=== PATIENT | female | born 1970 | race Caucasian/White ===

== ENCOUNTER 2018-05-26 06:25 | Emergency (ER) | payer MEDICARE ==
[~2018-05-26] VITALS: Ht 165.1 cm; Wt 102.1 kg
[2018-05-26] MEDS ORDERED: IV NORMAL SALINE 1,000ML 1,000 ML IV ONE (07:00)
[2018-05-26] MEDS ORDERED: ONDANSETRON PF 4 MG/2 ML VIAL. IV ONE (07:00)
[2018-05-26] MEDS ORDERED: ONDA4TAB12 PO (07:05)
--- NOTE | 2018-05-26 07:05 | PHYS DOC ---
Past History Past Medical History: Diabetes, Hypertension Alcohol Use: None Drug Use: None Adult General Chief Complaint Chief Complaint: NAUSEA/VOMITING/DIARRHEA HPI HPI 48-year-old female presents with vomiting and diarrhea since early this morning. The patient woke up about 4 hours ago with nausea. Soon after she began to have several episodes of vomiting and diarrhea. Patient now has diffuse abdominal cramping, mild in character. She denies fever or chills. She has been unable to keep down any fluids at home and is concerned she will get dehydrated. The vomiting and the stool do not contain blood. Review of Systems Review of Systems Constitutional: Denies fever or chills [] Eyes: Denies change in visual acuity, redness, or eye pain [] HENT: Denies nasal congestion or sore throat [] Respiratory: Denies cough or shortness of breath [] Cardiovascular: No additional information not addressed in HPI [] GI: Diffuse abdominal pain, nausea, vomiting, diarrhea [] : Denies dysuria or hematuria [] Musculoskeletal: Denies back pain or joint pain [] Integument: Denies rash or skin lesions [] Neurologic: Denies headache, focal weakness or sensory changes [] Endocrine: Denies polyuria or polydipsia [] All other systems were reviewed and found to be within normal limits, except as documented in this note. Current Medications Current Medications Current Medications Medications (Trade) Dose Ordered Sig/Bar Start Time Stop Time Status Last Admin Dose Admin Ondansetron HCl (Zofran) 4 mg 1X ONCE 05/26/18 07:00 05/26/18 07:01 Sodium Chloride 1,000 ml @ 1,000 mls/hr 1X ONCE 05/26/18 07:00 05/26/18 07:59 Allergies Allergies Allergies Coded Allergies Type Severity Reaction Last Updated Verified No Known Drug Allergies 05/26/18 No Physical Exam Physical Exam Constitutional: Well developed, well nourished, mild acute distress, non-toxic appearance. [] HENT: Normocephalic, atraumatic, bilateral external ears normal, oropharynx moist, no oral exudates, nose normal. [] Eyes: PERRLA, EOMI, conjunctiva normal, no discharge. [] Neck: Normal range of motion, no tenderness, supple, no stridor. [] Cardiovascular:Heart rate regular rhythm, tachycardia, rate 118, no murmur [] Lungs & Thorax: Bilateral breath sounds clear to auscultation [] Abdomen: Bowel sounds normal, soft, no tenderness, no masses, no pulsatile masses. [] Skin: Warm, dry, no erythema, no rash. [] Back: No tenderness, no CVA tenderness. [] Extremities: No tenderness, no cyanosis, no clubbing, ROM intact, no edema. [] Neurologic: Alert and oriented X 3, normal motor function, normal sensory function, no focal deficits noted. [] Psychologic: Affect normal, judgement normal, mood normal. [] Current Patient Data Vital Signs Vital Signs Date Time Temp Pulse Resp B/P (MAP) Pulse Ox O2 Delivery O2 Flow Rate FiO2 05/26/18 06:28 97.5 79 18 95 Room Air EKG EKG [] Radiology/Procedures Radiology/Procedures [] Impressions: CT scan of the abdomen and pelvis with contrast 05/26/2018 CLINICAL HISTORY: Abdominal pain with nausea and vomiting. TECHNIQUE: After the intravenous administration of 75 cc of Omnipaque 300, contiguous, 5 mm axial sections were obtained through the abdomen and pelvis. One or more of the following individualized dose reduction techniques were utilized for this study: 1. Automated exposure control. 2. Adjustment of the mA and/or kV according to patient size. 3. Use of iterative reconstruction technique. FINDINGS: Images through the lung bases demonstrate minimal dependent subsegmental atelectasis bilaterally. A 7 mm calcified granuloma is seen involving the right lower lobe. The liver is mildly enlarged measuring 22 cm in length. Decreased attenuation of the liver parenchyma is seen consistent with fatty infiltration. The spleen, pancreas, and left kidney are within normal limits. A 8 mm low-attenuation lesion is seen involving the midpole of the right kidney. This likely represents a cyst. Areas of fullness/nodularity are seen involving both adrenal glands, left greater than right. Atherosclerotic calcification of the abdominal aorta is seen. The abdominal aorta tapers normally. The gallbladder is not visualized presumably related to a cholecystectomy. No free fluid or free air is seen within the abdomen. The appendix is well-visualized and is within normal limits. There is no evidence of bowel obstruction. Images through the pelvis demonstrate the urinary bladder distended with urine. Calcifications are seen within the pelvis consistent with phleboliths. The patient appears to be post hysterectomy. A 2 cm rounded area of increased attenuation is seen in the left adnexa which likely represents a hemorrhagic follicle. No free fluid is seen. Minimal S-shaped curvature of the thoracolumbar spine is noted. Degenerative changes are seen involving the thoracic and throughout the lumbar spine and both hips. IMPRESSION: No acute abnormality is seen. Electronically signed by: Sergio Treadwell MD (05/26/2018 8:34 AM) [id number] DICTATED AND SIGNED BY: SERGIO TREADWELL MD DATE: 05/26/18 08 CC: NETTA WILLIS DO; PCP,NO Course & Med Decision Making Course & Med Decision Making Pertinent Labs and Imaging studies reviewed. (See chart for details) Patient's labs are significant for white count of 17. Given her abdominal pain and order a CT scan. It was negative for acute findings. The patient was given a liter of normal saline, 4 mg of Zofran IV, and 10 mg of Compazine IV. This did control her vomiting. She was feeling a bit better. She is ready to go home. I will discharge her with a prescription for Zofran. She is stable for discharge at this time [] Dragon Disclaimer Dragon Disclaimer This electronic medical record was generated, in whole or in part, using a voice recognition dictation system. Departure Departure: Impression: Primary Impression: Viral gastroenteritis Disposition: HOME, SELF-CARE Condition: STABLE Referrals: [facility] (PCP) Patient Instructions: Viral Gastroenteritis, [facility] Scripts Ondansetron (ONDANSETRON ODT) 4 Mg Tab.rapdis 1 TAB PO PRN Q6-8HRS PRN for NAUSEA/VOMITING, #16 TAB Prov: NETTA WILLIS DO 05/26/18 NETTA WILLIS DO May 26, 2018 07:05
[2018-05-26 07:14] LABS: BASO # 0.1 x10^3/uL (0.0-0.2); BASO % 1 % (0-3); EOS # 0.3 x10^3/uL (0.0-0.7); EOS % 2 % (0-3); HEMATOCRIT 46.8 % (36.0-47.0); HEMOGLOBIN 15.7 g/dL (12.0-15.5); LYMPH # 1.3 x10^3/uL (1.0-4.8); LYMPH % 8 % (24-48); MEAN CORPUSCULAR HEMOGLOBIN 31 pg (25-35); MEAN CORPUSCULAR HGB CONC 34 g/dL (31-37); MEAN CORPUSCULAR VOLUME 91 fL (79-100); MONO # 0.5 x10^3/uL (0.0-1.1); MONO % 3 % (0-9); NEUT # 15.2 x10^3uL (1.8-7.7); NEUT % 87 % (31-73); PLATELET COUNT 311 x10^3/uL (140-400); RED BLOOD COUNT 5.13 x10^6/uL (3.50-5.40); RED CELL DISTRIBUTION WIDTH 14.2 % (11.5-14.5); WHITE BLOOD COUNT 17.5 x10^3/uL (4.0-11.0)
[2018-05-26 07:19] LABS: ALBUMIN 3.8 g/dL (3.4-5.0); CALCIUM 8.9 mg/dL (8.5-10.1); CREATININE 0.9 mg/dL (0.6-1.0); GFR 66.5; POTASSIUM 3.7 mmol/L (3.5-5.1); TOTAL BILIRUBIN 0.4 mg/dL (0.2-1.0); TOTAL PROTEIN 7.6 g/dL (6.4-8.2)
[2018-05-26] MEDS ORDERED: LOPERAMIDE 2 MG CAPSULE PO ONE (07:40)
[2018-05-26] MEDS ORDERED: IOHEXOL 300 MG/ML 75 ML VIAL. IV ONE (08:05)
[2018-05-26 08:24] LABS: % BANDS 6 % (0-9); % EOS 3 % (0-5); % LYMPHS 7 % (24-48); % MONOS 2 % (0-10); % MYELOS 1 % (0-0); % SEGS 80 % (35-66); PLT ESTIMATE ADEQUATE (ADEQUATE)
[2018-05-26] MEDS ORDERED: PROCHLORPERAZINE 10 MG/2 ML VIAL. IV ONE (08:30)
--- NOTE | 2018-05-26 08:39 | RAD ---
CT scan of the abdomen and pelvis with contrast 05/26/2018 CLINICAL HISTORY: Abdominal pain with nausea and vomiting. TECHNIQUE: After the intravenous administration of 75 cc of Omnipaque 300, contiguous, 5 mm axial sections were obtained through the abdomen and pelvis. One or more of the following individualized dose reduction techniques were utilized for this study: 1. Automated exposure control. 2. Adjustment of the mA and/or kV according to patient size. 3. Use of iterative reconstruction technique. FINDINGS: Images through the lung bases demonstrate minimal dependent subsegmental atelectasis bilaterally. A 7 mm calcified granuloma is seen involving the right lower lobe. The liver is mildly enlarged measuring 22 cm in length. Decreased attenuation of the liver parenchyma is seen consistent with fatty infiltration. The spleen, pancreas, and left kidney are within normal limits. A 8 mm low-attenuation lesion is seen involving the midpole of the right kidney. This likely represents a cyst. Areas of fullness/nodularity are seen involving both adrenal glands, left greater than right. Atherosclerotic calcification of the abdominal aorta is seen. The abdominal aorta tapers normally. The gallbladder is not visualized presumably related to a cholecystectomy. No free fluid or free air is seen within the abdomen. The appendix is well-visualized and is within normal limits. There is no evidence of bowel obstruction. Images through the pelvis demonstrate the urinary bladder distended with urine. Calcifications are seen within the pelvis consistent with phleboliths. The patient appears to be post hysterectomy. A 2 cm rounded area of increased attenuation is seen in the left adnexa which likely represents a hemorrhagic follicle. No free fluid is seen. Minimal S-shaped curvature of the thoracolumbar spine is noted. Degenerative changes are seen involving the thoracic and throughout the lumbar spine and both hips. IMPRESSION: No acute abnormality is seen. Electronically signed by: Sergio Morrow MD (05/26/2018 8:34 AM) [id number]
[2018-05-26 08:52] VITALS: BP 122/61
[2018-05-26] MEDS ORDERED: KETOROLAC 30 MG/ML VIAL. IV ONE (09:00)
== END 2018-05-26 09:04 | disposition home or self-care (01) ==
LOC: ER 06:25
DX: A08.4 Viral intestinal infection, unspecified (principal); R11.2 Nausea with vomiting, unspecified; R19.7 Diarrhea, unspecified; E11.9 Type 2 diabetes mellitus without complications; I10 Essential (primary) hypertension
CPT/HCPCS: 36415; 74177; 80053; 83690; 85007; 85025; 96361; 96374; 96375; 99284; J0780; J1885; J2405; Q9967; J7030